=== PATIENT | female | born 1975 | race Caucasian/White ===

== ENCOUNTER → 2016-10-21 | Outpatient (CLI) | payer BC ==
[2005-05-26 11:00] VITALS: PULSE 105; TEMP 98.2
== END ==
LOC: MC.RAD 14:22
DX: Z12.31 Encounter for screening mammogram for malignant neoplasm of breast (principal); R92.1 Mammographic calcification found on diagnostic imaging of breast

== ENCOUNTER → 2017-06-17 | Outpatient (CLI) | payer OTHER ==
[2005-05-26 11:00] VITALS: PULSE 105; TEMP 98.2
== END ==
LOC: MC.RAD 10:58
DX: N63.11 Unspecified lump in the right breast, upper outer quadrant (principal)

== ENCOUNTER → 2017-11-02 | Outpatient (CLI) | payer OTHER ==
[2005-05-26 11:00] VITALS: PULSE 105; TEMP 98.2
== END ==
LOC: MC.RAD 14:08
DX: Z12.31 Encounter for screening mammogram for malignant neoplasm of breast (principal)

== ENCOUNTER → 2018-11-08 | Outpatient (CLI) | payer OTHER | LOC: MC.RAD 14:12 | DX: Z12.31 Encounter for screening mammogram for malignant neoplasm of breast (principal) ==

== ENCOUNTER → 2019-11-15 | Outpatient (CLI) | payer OTHER ==
[2005-05-26 11:00] VITALS: PULSE 105; TEMP 98.2
== END ==
LOC: MC.RAD 14:29
DX: Z12.31 Encounter for screening mammogram for malignant neoplasm of breast (principal)

== ENCOUNTER → 2020-11-18 | Outpatient (CLI) | payer OTHER ==
[2005-05-26 11:00] VITALS: PULSE 105; TEMP 98.2
== END ==
LOC: MC.RAD 14:52
DX: Z12.31 Encounter for screening mammogram for malignant neoplasm of breast (principal)

== ENCOUNTER → 2022-02-23 | Outpatient (CLI) | payer OTHER ==
[2005-05-26 11:00] VITALS: PULSE 105; TEMP 98.2
== END ==
LOC: MC.RAD 13:23
DX: Z12.31 Encounter for screening mammogram for malignant neoplasm of breast (principal)

== ENCOUNTER → 2024-01-12 | Outpatient (CLI) | payer OTHER ==
[2005-05-26 11:00] VITALS: PULSE 105; TEMP 98.2
== END ==
LOC: COL.RAD 12:48
DX: R22.41 Localized swelling, mass and lump, right lower limb (principal); Z85.820 Personal history of malignant melanoma of skin; Z98.890 Other specified postprocedural states

== ENCOUNTER → 2024-04-12 | Outpatient (CLI) | payer BC ==
[2005-05-26 11:00] VITALS: PULSE 105; TEMP 98.2
== END ==
LOC: MC.RAD 13:41
DX: Z12.31 Encounter for screening mammogram for malignant neoplasm of breast (principal); N63.11 Unspecified lump in the right breast, upper outer quadrant

== ENCOUNTER → 2024-04-19 | Outpatient (CLI) | payer BC ==
[2005-05-26 11:00] VITALS: PULSE 105; TEMP 98.2
== END ==
LOC: MC.RAD 06:53
DX: N63.15 Unspecified lump in the right breast, overlapping quadrants (principal)
CPT/HCPCS: A4648